=== PATIENT | male | born 1940 | race American Indian/Alaskan Native ===

== ENCOUNTER 2017-08-31 05:54 | Day surgery (SDC) | payer MEDICARE, OTHER ==
[2017-08-31] MEDS ORDERED: NACL BACTERIOSTATIC INFILTRATI ONE (06:29)
--- NOTE | 2017-08-31 07:18 | Anesthesia Consultation ---
Anesthesia Consult and Med Hx Date of service: 08/31/17 - Airway Anesthetic Teeth Evaluation: Good, Partials Mental/Hyoid Distance: Adequate Mallampati Class: Class III Intubation Access Assessment: Possibly Difficult - Pulmonary Exam CTA: Yes - Cardiac Exam Cardiac Exam: RRR - Pre-Operative Health Status ASA Pre-Surgery Classification: ASA3 Proposed Anesthetic Plan: General - Pulmonary Hx Smoking: No Hx Sleep Apnea: No (RENNY PRE SCREEN HIGH RISK.) - Cardiovascular System Hx Hypertension: Yes (X 40 YRS) Hx Coronary Artery Disease: Yes (ANGIOPLASTY 30 YRS AGO) Hx Heart Attack/AMI: No - Central Nervous System Hx Back Pain: Yes - Other Systems Hx Cancer: No - Additional Comments Anesthesia Medical History Comments: Cardiac clearance on chart. severely dilated LV. cardiomyopathy with EF 12%.
[2017-08-31] MEDS ORDERED: PERCOCET 5/325 PO PRN (07:19)
--- NOTE | 2017-08-31 07:19 | Anesthesia Day of Surgery ---
Anesthesia Day of Surgery - Day of Surgery Patient Examined: Yes Patient H&P Reviewed: Yes Patient is NPO: Yes Beta Blockers: No Cardiac Clearance: Yes
[2017-08-31] MEDS ORDERED: DIPRIVAN 10 MG/ML IV ONE (07:28)
[2017-08-31] MEDS ORDERED: SUBLIMAZE ONE (07:28)
[2017-08-31] MEDS ORDERED: XYLOCAINE MPF 2% ONE (07:28)
[2017-08-31] MEDS ORDERED: AMIDATE IV ONE (07:35)
[2017-08-31 07:46] LABS: INR 1.01 (0.87-1.13)
[2017-08-31 07:47] LABS: Partial Thromboplastin Time 41.1 Sec. (24.2-36.6)
[2017-08-31] MEDS ORDERED: ZOFRAN IV PRN (08:00)
[2017-08-31] MEDS ORDERED: LACTATED RINGERS 1,000 ML IV SCH (08:00)
[2017-08-31] MEDS ORDERED: PEPCID IV NR (08:00)
[2017-08-31] MEDS ORDERED: FLEET PR ONE (08:54)
[2017-08-31] MEDS ORDERED: LEVAQUIN 750MG/150ML 750 MG/150 ML BAG IV SCH (09:00)
[2017-08-31] MEDS ORDERED: ePHEDrine SULFATE ONE (09:00)
[2017-08-31] MEDS ORDERED: GARAMYCIN/NS 80 MG/100 ML 100 ML IV ONE (09:14)
[2017-08-31] MEDS ORDERED: LEVAQUIN 250MG/50ML 250 MG/50 ML BAG IV SCH (09:30)
[2017-08-31] MEDS ORDERED: ZOFRAN ONE (09:34)
[2017-08-31] MEDS ORDERED: GARAMYCIN 80 MG in NACL 0.9% 100 ML IV ONE (09:41)
--- NOTE | 2017-08-31 09:44 | Short Stay Summary ---
Short Stay Documentation Date of service: 08/31/17 - History H&P: obtained from office - Allergies and Medications Current Medications: Allergies Penicillins Allergy (Verified 08/18/17 17:03) Hives Home Medications Medication Instructions Recorded Confirmed Last Taken Type Amlodipine Besylate/Valsartan 1 each PO DAILY 08/18/17 08/31/17 08/29/17 History [Amlodipine-Valsartan 10-320 mg] Citalopram [celeXA] 20 mg PO QDAY 08/18/17 08/31/17 08/29/17 History Multivit-Min/FA/Lycopen/Lutein 1 each PO DAILY 08/18/17 08/31/17 08/29/17 History [Centrum Silver Tablet] Active Medications Famotidine (Pepcid) 20 mg IV PREOP NR Stop: 08/31/17 10:00 Last Admin: 08/31/17 07:42 Dose: 20 mg Lactated Ringer's (Lactated Ringers) 1,000 mls @ 100 mls/hr IV DIRECT YASHIRA Last Admin: 08/31/17 07:42 Dose: 100 mls/hr Levofloxacin/Dextrose (Levaquin 250mg/50ml) 250 mg in 50 mls @ 50 mls/hr IV PREOP YASHIRA Stop: 08/31/17 10:30 Morphine Sulfate (Morphine) 2 mg IV Q10MIN PRN PRN Reason: Pain, Moderate (4-6) Stop: 08/31/17 15:00 Oxycodone/Acetaminophen (Percocet 5/325) 1 tab PO ONCE PRN PRN Reason: Pain, Moderate (4-6) Stop: 08/31/17 10:00 - Brief post op/procedure progress note Date of procedure: 08/31/17 Pre-op diagnosis: elevated psa, bph Post-op diagnosis: same Procedure: cysto, PUS bx Anesthesia: GETA Findings: lg prost 130 Surgeon: GABBY BRYANT Estimated blood loss: minimal (12 core standard / llax2) Pathology: list (12 core standard / llax2) Specimen disposition: to lab Condition: stable - Hospital course Hospital course: orpacuhome - Disposition Condition at discharge: Good Disposition: DC- TO HOME OR SELFCARE Short Stay Discharge Plan Activity: advance as tolerated Diet: advance as tolerated Follow up with: GABBY BRYANT MD [Staff Physician] - 09/01/17
[2017-08-31] MEDS ORDERED: WATER FOR IRRIG STERILE IR ONE ×2 (09:55→09:56)
[2017-08-31] MEDS: MORPHINE IV PRN ×2 (11:06→11:22)
--- NOTE | 2017-08-31 11:28 | XRay Report ---
ABDOMEN RADIOGRAPHS INDICATION: Enlarged prostate, gross hematuria. COMPARISON: None similar. FINDINGS: Frontal intraoperative fluoroscopic radiographs obtained as store administrator images demonstrate lumbar levoscoliosis apex about L2-L3, grossly nonobstructive bowel gas pattern, small left pelvic phlebolith and possible aortic atherosclerotic changes. Nonspecific density also projects in the region of the left kidney with calculi not excluded. Retrograde pyelograms though not performed due to enlarged prostate. CONCLUSION: Intraoperative store administrator radiographs with findings, as described. Thank you for the opportunity to participate in this patient's care.
[2017-08-31 12:04] VITALS: BP 137/76
--- NOTE | 2017-08-31 13:05 | Ultrasound Report ---
ULTRASOUND GUIDANCE INTRAOPERATIVE - TRANSRECTAL: HISTORY: Prostate biopsy guidance. Elevated PSA. COMPARISON: None similar. FINDINGS: Transrectal ultrasound guidance provided for Dr. Acuna for prostate biopsy. Prostate estimated at 134 cc. CONCLUSION: Prostate biopsy performed under ultrasound guidance. Thank you for the opportunity to participate in this patient's care.
== END 2017-08-31 12:53 | disposition home or self-care (01) ==
LOC: OR 05:54
PROVIDERS: ATTEND Urology
DX: C61 Malignant neoplasm of prostate (principal); N28.1 Cyst of kidney, acquired; M19.90 Unspecified osteoarthritis, unspecified site; I25.10 Atherosclerotic heart disease of native coronary artery without angina pectoris; I12.0 Hypertensive chronic kidney disease with stage 5 chronic kidney disease or end stage renal disease; N18.6 End stage renal disease; N40.0 Benign prostatic hyperplasia without lower urinary tract symptoms; M10.9 Gout, unspecified; Z99.2 Dependence on renal dialysis; Z88.0 Allergy status to penicillin; Z98.61 Coronary angioplasty status; Z79.899 Other long term (current) drug therapy
CPT/HCPCS: 36415; 55700; 74000; 76998; 84132; 85610; 85730; 88305; A4217; C1758; J1580; J1956; J2270; J2405; J3010; J7120; Q9967; 82962; J2704